=== PATIENT | female | born 1980 ===

== ENCOUNTER 2019-10-09 23:18 | Emergency (ER) | payer SELFPAY ==
--- NOTE | 2019-10-09 23:36 | ED Physician Documentation ---
Ear Complaints - HISTORIAN Historian: patient - HPI Chief Complaint: Ear Complaints Additional Information: 38 year old female presents with the sensation that something is in her left ear; boyfriend states that he saw something in the ear; examined ear and there is NOTHING in the ear. Timing: still present Location of Pain: L ear Severity: mild Associated Symptoms: roaring - ROS CONST: no problems CVS/RESP: none GI/: denies: nausea, vomiting MS/SKIN/LYMPH: none NEURO/PSYCH: none - PAST HX Past History: other (Addiction) Immunizations: UTD - SOCIAL HX Smoking History: greater than 1 pack/day Alcohol Use: none Drug Use: other (recovering) - FAMILY HX Family History: No - REVIEWED ASSESSMENTS Nursing Assessment Reviewed: Yes Vitals Reviewed: Yes Procedures Progress: Irrigated left ear with warm water- left ear is clear- no foreign bodies noted ED Results Lab/Radiology - Orders Orders: ED Orders Category Date Time Status guaiFENesin [Mucinex] Med 10/09/19 23:34 Once 600 mg PO NOW ONE Ear Complaint Physical Exam - EXAM General Appearance: no acute distress, alert Ear: auricle nml, board [email or web address] nml, TM's nml Mouth/Throat: lips nml, gums nml, pharynx nml Nose: nml inspection Resp/CVS: breath sounds nml, heart sounds nml Skin: nml color Neuro/Psych: oriented x3 Discharge Clincal Impression: Normal ear exam Additional Instructions: No foreign body noted to the ear Use Mucinex 600mg by mouth twice a day for 7 days Follow up with PCP as needed Condition: Good Disposition: 01 HOME, SELF-CARE Decision to Admit: NO Decision Time: 23:40
[2019-10-09] MEDS: guaiFENesin 600 MG TAB.ER.12H PO ONE (23:38)
[2019-10-10 00:08] VITALS: BP 158/78
== END 2019-10-09 23:40 | disposition home or self-care (01) ==
LOC: ED 23:18
DX: Z00.01 Encounter for general adult medical examination with abnormal findings (principal)
CPT/HCPCS: 99282; 99283